=== PATIENT | female | born 1980 | race Asian ===

== ENCOUNTER 2018-10-26 10:43 | Outpatient (CLI) | payer OTHER | END 2018-10-26 21:04 | disposition home or self-care (01) | LOC: RAD 10:43 | DX: M54.17 Radiculopathy, lumbosacral region (principal) ==

== ENCOUNTER 2021-04-22 09:41 | Outpatient (CLI) | payer OTHER | END 2021-04-22 21:51 | disposition home or self-care (01) | LOC: RAD 09:41 | PROVIDERS: ATTEND Nurse Practitioner Family | DX: M54.17 Radiculopathy, lumbosacral region (principal) ==